=== PATIENT | male | born 1950 | race Caucasian/White ===

== ENCOUNTER 2016-09-24 19:39 | Observation (INO) | payer MEDICARE, OTHER ==
[2016-09-24] MEDS ORDERED: MORPHINE 4 MG/ML INJECTION IV ONE (20:17)
[2016-09-24] MEDS ORDERED: ONDANSETRON HCL 4 MG/2 ML VIAL IV ONE (20:17)
[2016-09-24] MEDS ORDERED: NS 1,000 ML IV ONE (20:17)
--- NOTE | 2016-09-24 20:43 | DIRPT ---
CLINICAL DATA: Shortness of breath, weakness and confusion today. Initial encounter. EXAM: CHEST 2 VIEW COMPARISON: CT chest and single view of the chest 08/20/2015. FINDINGS: There is mild cardiomegaly without edema. The lungs are clear. No pneumothorax or pleural effusion. IMPRESSION: No acute disease Electronically Signed By: Jacques Morrell M.D. On: 09/24/2016 20:40
[2016-09-24 21:05] LABS: AUTOMATED BASOPHIL 0.2 % (0-2)
[2016-09-24 21:07] LABS: AUTOMATED EOSINOPHIL 0.8 % (0-5); AUTOMATED LYMPH 5.5 % (17-44); AUTOMATED NEUTROPHIL 83.5 % (45-76); MPV 10.2 fL (7.4-10.4)
[2016-09-24 21:10] LABS: PARTIAL THROMB. TIME 37.7 SEC (22-35); PT-INR 1.5
[2016-09-24 21:11] LABS: BLOOD UREA NITROGEN 24 MG/DL (9-20); CALC CORRECTED 8.9 MG/DL (8.4-10.2); CALCIUM 8.6 MG/DL (8.4-10.2); CALCULATED OSMOLALITY 275 MOs/Kg (270-290); CHLORIDE 99 mEq/L (98-107); GLUCOSE 186 MG/DL (70-99); SODIUM LEVEL 138 mEq/L (137-146)
--- NOTE | 2016-09-24 21:36 | DIRPT ---
CLINICAL DATA: Right upper quadrant pain for 1 week. Subsequent encounter. EXAM: US ABDOMEN LIMITED - RIGHT UPPER QUADRANT COMPARISON: CT abdomen and pelvis 05/05/2015. Right upper quadrant ultrasound 01/20/2016. FINDINGS: Gallbladder: A few small stones measuring up to 0.7 cm are identified within the gallbladder. There is no pericholecystic fluid or wall thickening. Meteorology Teacher reports negative Olivera's sign. Common bile duct: Diameter: 0.6 cm. Liver: Demonstrates increased echogenicity consistent with fatty infiltration. No focal liver lesion. IMPRESSION: A few small gallstones are identified. There is no evidence of cholecystitis. No acute finding. Fatty infiltration of the liver. Electronically Signed By: Jacques Morrell M.D. On: 09/24/2016 21:33
[2016-09-24 22:00] LABS: LEUKOCYTES/URINE 2+ (NEGATIVE); NITRITE/URINE NEG (NEGATIVE); RBC/URINE TNTC (0-2); URINE OCCULT BLOOD 3+ (NEG/TRACE); WBC/URINE TNTC (0-2)
[2016-09-24] MEDS ORDERED: NYSTATIN ORAL SUSP 5 ML PO ONE (22:12)
[2016-09-24] MEDS ORDERED: Levofloxacin 750 mg/150 ml D5W 750 MG/150 ML RTU IV ONE (22:15)
--- NOTE | 2016-09-24 22:25 | EDPRACDOC ---
<Bhavana Gonzalez - Last Filed: 09/24/16 22:28> - General Information Information Source: Patient - History of Present Illness Onset: today HPI: C/o weakness, blood in urine, confusion, fever up to 100.3 and RUQ pain x 3 days. Denies N/V/D, cp, sob, cough, sore throat. Hx of blood clots in legs and lungs. Surgical hx = none. Symptoms Started: Reports: Gradually Symptoms Description: Constant Weakness: Bilateral: Generalized Symptoms: Reports: Weak Symptom Severity: Reports: Unable to performs ADL's Associated signs and symptoms:: Reports: None <Tariq Mendoza - Last Filed: 09/25/16 00:49> - General Information Chief Complaint: Generalized Weakness Stated Complaint: MEDICAL EVAL Time Seen by Provider: 09/24/16 20:05 Home Medications: Home Medications Gabapentin [Neurontin] 600 mg PO 0800,199908/20/15 Magnesium Hydroxide/Al Hydrox [Mylanta Liquid] 30 ml PO Q6H PRN 08/20/15 Albuterol Sulfate MDI [Proventil HFA] 2 puff INH Q4-6H PRN 09/24/16 Albuterol/Ipratropium Neb [Duoneb] 3 ml NEB Q6H PRN 09/24/16 Alprazolam [Xanax] 0.25 mg PO Q8H PRN 09/24/16 Bethanechol Chloride 50 mg PO BID 09/24/16 CYANOCOBALAMIN (Vitamin B-12) [Vitamin B-12] 1,000 mcg IM QMONTH 09/24/16 Docusate Sodium [Colace] 100 mg PO Q12H PRN 09/24/16 Ergocalciferol (Vitamin D2) [Vitamin D] 50,000 units PO QMONTH 09/24/16 Ferrous Sulfate [Feosol] 325 mg PO BID 09/24/16 Gabapentin 400 mg PO 1200 09/24/16 Lisinopril 5 mg PO DAILY 09/24/16 Metoprolol Tartrate [Lopressor] 12.5 mg PO BID 09/24/16 Nitroglycerin [Nitrostat] 0.4 mg SL Q5MX3 PRN 09/24/16 [place]-3 Fatty Acids/Fish Oil [Fish Oil 1,000 mg Softgel] 1 cap PO TID 09/24/16 Omeprazole 20 mg PO DAILY 09/24/16 Ondansetron HCl [Zofran] 4 mg PO Q8H PRN 09/24/16 Oxycodone HCl [Roxicodone] 5 mg PO Q4H PRN 09/24/16 Rivaroxaban [Xarelto] 15 mg PO .BID SEE COMMENTS 09/24/16 Spironolactone [Aldactone] 12.5 mg PO DAILY PRN 09/24/16 Suvorexant [Belsomra] 10 mg PO QHS 09/24/16 Tamsulosin HCl [Flomax] 0.4 mg PO BID 09/24/16 Tramadol HCl 25 mg PO Q12H PRN 09/24/16 Allergies/Adverse Reactions: Allergies Allergy/AdvReac Type Severity Reaction Status Date / Time aspirin Allergy Hives* Verified 02/01/16 10:36 ED Past Medical History - History Reviewed Yes Nurses notes reviewed and agree except as marked - Patient Medical History Cardiac History: Reports: Hypertension Respiratory History: Reports: COPD, Pneumonia, Pulmonary Embolism GI/ History: Reports: Urinary Tract Infection, Ulcer (long time ago) Musculoskeletal History: Reports: Arthritis Psychological History: Reports: Anxiety. Denies: Depression Systemic History: Reports: Anemia, Diabetes - Family Medical History Reports: Hypertension (multi-family), Cancer (mother (colon)). Denies: Diabetes , Stroke, Cardiac Disorders - Social Medical History Smoking Status: Never smoker <Tariq Mendoza - Last Filed: 09/25/16 00:49> EDM Review of Systems - Review of Systems ROS Negative Except as Marked: Yes All systems reviewed and were negative except as marked Gastrointestinal: Pain Genitourinary: Hematuria Neurological: Weakness, Changes in Orientation <Tariq Mendoza - Last Filed: 09/25/16 00:49> - Physical Exam Last recorded Vital Signs: Last Vital Signs Temp 99.3 F 09/24/16 20:01 Pulse 102 09/24/16 20:01 Resp 16 09/24/16 20:01 BP 150/67 09/24/16 20:01 Pulse Ox 97 09/24/16 20:01 Oxygen Pulse Oxygen Saturation 97 O2 Device Oxygen Flow Rate Fraction of Inspired Oxygen ( FIO2) <Bhavana Gonzalez - Last Filed: 09/24/16 22:28> - Physical Exam Constitutional: No apparent distress, Alert Oriented to: Time, Person, Place Last recorded Vital Signs: Last Vital Signs Temp 99.3 F 09/24/16 20:01 Pulse 102 09/24/16 20:01 Resp 16 09/24/16 20:01 BP 150/67 09/24/16 20:01 Pulse Ox 97 09/24/16 20:01 Oxygen Pulse Oxygen Saturation 97 O2 Device Oxygen Flow Rate Fraction of Inspired Oxygen ( FIO2) - HEENT Head: Normal Eye Exam: negative: Conjunctival Injection, Scleral Icterus Oropharynx: negative: Drooling TMJ: Normal Nose: No Symptoms Reported Neck: Normal - Respiratory/Cardiovascular Respiratory: Normal - CTA Cardiovascular: Normal - GI Auscultation: Normal Palpation: Normal Tenderness: Non tender, RUQ Olivera's Sign: Positive - Musculoskeletal Back: Normal Extremities: Normal - Integumentary Skin: Normal - Neurologic Memory Impaired: Normal Motor Function: Normal Cranial Nerve: Normal Mood Description: Normal Thought: Coherent Perception: Normal Neurologic Comment: neuro exam nml <Tariq Mendoza - Last Filed: 09/25/16 00:49> - Neurologic Orientation: Time, Person, Place Speech: Fluent Coginitive: Normal Affect: Normal Thought: Coherent Perception: Normal <Tariq Mendoza - Last Filed: 09/25/16 00:49> - Results 09/24/16 20:15 09/24/16 20:15 WBC 5.9 xk/uL (3.8-10.8) 09/24/16 20:15 RBC 3.82 xM/uL (4.70-6.10) L 09/24/16 20:15 Hgb 11.6 g/dL (14.0-18.0) L 09/24/16 20:15 Hct 33.7 % (42-52) L 09/24/16 20:15 MCV 88 fL (80-94) 09/24/16 20:15 MCH 30.3 pg (27-32) 09/24/16 20:15 MCHC 34.3 g/dl (33-36) 09/24/16 20:15 RDW 14.6 % (11.5-14.5) H 09/24/16 20:15 Plt Count 51 xk/uL (130-400) L 09/24/16 20:15 MPV 10.2 fL (7.4-10.4) 09/24/16 20:15 Neut % (Auto) 83.5 % (45-76) H 09/24/16 20:15 Lymph % (Auto) 5.5 % (17-44) L 09/24/16 20:15 [place] % (Auto) 10.0 % (3-10) 09/24/16 20:15 Eos % (Auto) 0.8 % (0-5) 09/24/16 20:15 Baso % (Auto) 0.2 % (0-2) 09/24/16 20:15 Absolute Neuts (auto) 4.90 xk/uL (1.7-8.2) 09/24/16 20:15 Absolute Lymphs (auto) 0.30 xk/uL (0.65-4.75) L 09/24/16 20:15 PT 15.9 SEC (9.2-11.2) H 09/24/16 20:15 INR 1.5 09/24/16 20:15 APTT 37.7 SEC (22-35) H 09/24/16 20:15 Sodium 138 mEq/L (137-146) 09/24/16 20:15 Potassium 4.2 mEq/L (3.5-5.1) 09/24/16 20:15 Chloride 99 mEq/L (98-107) 09/24/16 20:15 Carbon Dioxide 26 mMOL/L (22-33) 09/24/16 20:15 Anion Gap 17 mEq/L (8-16) H 09/24/16 20:15 BUN 24 MG/DL (9-20) H 09/24/16 20:15 Creatinine 1.80 MG/DL (0.66-1.25) H 09/24/16 20:15 Estimated GFR (MDRD) 38 mL/min (>=60) L 09/24/16 20:15 Glucose 186 MG/DL (70-99) H 09/24/16 20:15 Calculated Osmolality 275 MOs/Kg (270-290) 09/24/16 20:15 Calcium 8.6 MG/DL (8.4-10.2) 09/24/16 20:15 Corrected Calcium 8.9 MG/DL (8.4-10.2) 09/24/16 20:15 Total Bilirubin 1.3 MG/DL (0.2-1.3) 09/24/16 20:15 AST 27 IU/L (17-59) 09/24/16 20:15 ALT 27 IU/L (21-72) 09/24/16 20:15 Alkaline Phosphatase 98 IU/L (50-160) 09/24/16 20:15 Troponin I 0.02 ng/mL (<.04) 09/24/16 20:15 Lsz-O-Hnlfzhrjypb Pept 823 pg/mL (0-900) 09/24/16 20:15 Total Protein 8.0 G/DL (6.3-8.2) 09/24/16 20:15 Albumin 3.7 G/DL (3.5-5.0) 09/24/16 20:15 Urine Color Dark yellow 09/24/16 21:40 Urine Clarity Sl hzy 09/24/16 21:40 Urine pH 5.0 (5.0-8.0) 09/24/16 21:40 Ur Specific [place] 1.015 (1.003-1.035) 09/24/16 21:40 Urine Protein 2+ (NEG/TRACE) H 09/24/16 21:40 Urine Glucose (UA) Neg (NEGATIVE) 09/24/16 21:40 Urine Ketones Neg (NEGATIVE) 09/24/16 21:40 Urine Occult Blood 3+ (NEG/TRACE) H 09/24/16 21:40 Urine Nitrite Neg (NEGATIVE) 09/24/16 21:40 Urine Bilirubin Neg (NEGATIVE) 09/24/16 21:40 Urine Urobilinogen 4 MG/DL (0-1) H 09/24/16 21:40 Ur Leukocyte Esterase 2+ (NEGATIVE) H 09/24/16 21:40 Urine RBC Tntc (0-2) H 09/24/16 21:40 Urine WBC Tntc (0-2) H 09/24/16 21:40 Urine WBC Clumps Present (NONE) H 09/24/16 21:40 Ur Epithelial Cells 1+ 09/24/16 21:40 Urine Bacteria 1+ (NEG/FEW) H 09/24/16 21:40 Hyaline Casts 2-5 (0-2) H 09/24/16 21:40 Urine Mucus Occ (NEG/OCC) 09/24/16 21:40 Lab Results 09/24/16 09/24/16 09/24/16 21:40 20:15 20:15 WBC 5.9 RBC 3.82 L Hgb 11.6 L Hct 33.7 L MCV 88 MCH 30.3 MCHC 34.3 RDW 14.6 H Plt Count 51 L MPV 10.2 Neut % (Auto) 83.5 H Lymph % (Auto) 5.5 L [place] % (Auto) 10.0 Eos % (Auto) 0.8 Baso % (Auto) 0.2 Absolute Neuts (auto) 4.90 Absolute Lymphs (auto) 0.30 L PT 15.9 H INR 1.5 APTT 37.7 H Sodium Potassium Chloride Carbon Dioxide Anion Gap BUN Creatinine Estimated GFR (MDRD) Glucose Calculated Osmolality Calcium Corrected Calcium Total Bilirubin AST ALT Alkaline Phosphatase Troponin I Dmt-U-Mbuwlagxjws Pept Total Protein Albumin Urine Color Dark yellow Urine Clarity Sl hzy Urine pH 5.0 Ur Specific [place] 1.015 Urine Protein 2+ H Urine Glucose (UA) Neg Urine Ketones Neg Urine Occult Blood 3+ H Urine Nitrite Neg Urine Bilirubin Neg Urine Urobilinogen 4 H Ur Leukocyte Esterase 2+ H Urine RBC Tntc H Urine WBC Tntc H Urine WBC Clumps Present H Ur Epithelial Cells 1+ Urine Bacteria 1+ H Hyaline Casts 2-5 H Urine Mucus Occ 09/24/16 20:15 WBC RBC Hgb Hct MCV MCH MCHC RDW Plt Count MPV Neut % (Auto) Lymph % (Auto) [place] % (Auto) Eos % (Auto) Baso % (Auto) Absolute Neuts (auto) Absolute Lymphs (auto) PT INR APTT Sodium 138 Potassium 4.2 Chloride 99 Carbon Dioxide 26 Anion Gap 17 H BUN 24 H Creatinine 1.80 H Estimated GFR (MDRD) 38 L Glucose 186 H Calculated Osmolality 275 Calcium 8.6 Corrected Calcium 8.9 Total Bilirubin 1.3 AST 27 ALT 27 Alkaline Phosphatase 98 Troponin I 0.02 Hvm-D-Xxdupyiuspz Pept 823 Total Protein 8.0 Albumin 3.7 Urine Color Urine Clarity Urine pH Ur Specific [place] Urine Protein Urine Glucose (UA) Urine Ketones Urine Occult Blood Urine Nitrite Urine Bilirubin Urine Urobilinogen Ur Leukocyte Esterase Urine RBC Urine WBC Urine WBC Clumps Ur Epithelial Cells Urine Bacteria Hyaline Casts Urine Mucus <Bhavana Gonzalez - Last Filed: 09/24/16 22:28> - Results 09/24/16 20:15 09/24/16 20:15 WBC 5.9 xk/uL (3.8-10.8) 09/24/16 20:15 RBC 3.82 xM/uL (4.70-6.10) L 09/24/16 20:15 Hgb 11.6 g/dL (14.0-18.0) L 09/24/16 20:15 Hct 33.7 % (42-52) L 09/24/16 20:15 MCV 88 fL (80-94) 09/24/16 20:15 MCH 30.3 pg (27-32) 09/24/16 20:15 MCHC 34.3 g/dl (33-36) 09/24/16 20:15 RDW 14.6 % (11.5-14.5) H 09/24/16 20:15 Plt Count 51 xk/uL (130-400) L 09/24/16 20:15 MPV 10.2 fL (7.4-10.4) 09/24/16 20:15 Neut % (Auto) 83.5 % (45-76) H 09/24/16 20:15 Lymph % (Auto) 5.5 % (17-44) L 09/24/16 20:15 [place] % (Auto) 10.0 % (3-10) 09/24/16 20:15 Eos % (Auto) 0.8 % (0-5) 09/24/16 20:15 Baso % (Auto) 0.2 % (0-2) 09/24/16 20:15 Absolute Neuts (auto) 4.90 xk/uL (1.7-8.2) 09/24/16 20:15 Absolute Lymphs (auto) 0.30 xk/uL (0.65-4.75) L 09/24/16 20:15 PT 15.9 SEC (9.2-11.2) H 09/24/16 20:15 INR 1.5 09/24/16 20:15 APTT 37.7 SEC (22-35) H 09/24/16 20:15 Sodium 138 mEq/L (137-146) 09/24/16 20:15 Potassium 4.2 mEq/L (3.5-5.1) 09/24/16 20:15 Chloride 99 mEq/L (98-107) 09/24/16 20:15 Carbon Dioxide 26 mMOL/L (22-33) 09/24/16 20:15 Anion Gap 17 mEq/L (8-16) H 09/24/16 20:15 BUN 24 MG/DL (9-20) H 09/24/16 20:15 Creatinine 1.80 MG/DL (0.66-1.25) H 09/24/16 20:15 Estimated GFR (MDRD) 38 mL/min (>=60) L 09/24/16 20:15 Glucose 186 MG/DL (70-99) H 09/24/16 20:15 Calculated Osmolality 275 MOs/Kg (270-290) 09/24/16 20:15 Calcium 8.6 MG/DL (8.4-10.2) 09/24/16 20:15 Corrected Calcium 8.9 MG/DL (8.4-10.2) 09/24/16 20:15 Total Bilirubin 1.3 MG/DL (0.2-1.3) 09/24/16 20:15 AST 27 IU/L (17-59) 09/24/16 20:15 ALT 27 IU/L (21-72) 09/24/16 20:15 Alkaline Phosphatase 98 IU/L (50-160) 09/24/16 20:15 Troponin I 0.02 ng/mL (<.04) 09/24/16 20:15 Lxu-V-Mrpdyfbwctp Pept 823 pg/mL (0-900) 09/24/16 20:15 Total Protein 8.0 G/DL (6.3-8.2) 09/24/16 20:15 Albumin 3.7 G/DL (3.5-5.0) 09/24/16 20:15 Urine Color Dark yellow 09/24/16 21:40 Urine Clarity Sl hzy 09/24/16 21:40 Urine pH 5.0 (5.0-8.0) 09/24/16 21:40 Ur Specific [place] 1.015 (1.003-1.035) 09/24/16 21:40 Urine Protein 2+ (NEG/TRACE) H 09/24/16 21:40 Urine Glucose (UA) Neg (NEGATIVE) 09/24/16 21:40 Urine Ketones Neg (NEGATIVE) 09/24/16 21:40 Urine Occult Blood 3+ (NEG/TRACE) H 09/24/16 21:40 Urine Nitrite Neg (NEGATIVE) 09/24/16 21:40 Urine Bilirubin Neg (NEGATIVE) 09/24/16 21:40 Urine Urobilinogen 4 MG/DL (0-1) H 09/24/16 21:40 Ur Leukocyte Esterase 2+ (NEGATIVE) H 09/24/16 21:40 Urine RBC Tntc (0-2) H 09/24/16 21:40 Urine WBC Tntc (0-2) H 09/24/16 21:40 Urine WBC Clumps Present (NONE) H 09/24/16 21:40 Ur Epithelial Cells 1+ 09/24/16 21:40 Urine Bacteria 1+ (NEG/FEW) H 09/24/16 21:40 Hyaline Casts 2-5 (0-2) H 09/24/16 21:40 Urine Mucus Occ (NEG/OCC) 09/24/16 21:40 Lab Results 09/24/16 09/24/16 09/24/16 21:40 20:15 20:15 WBC 5.9 RBC 3.82 L Hgb 11.6 L Hct 33.7 L MCV 88 MCH 30.3 MCHC 34.3 RDW 14.6 H Plt Count 51 L MPV 10.2 Neut % (Auto) 83.5 H Lymph % (Auto) 5.5 L [place] % (Auto) 10.0 Eos % (Auto) 0.8 Baso % (Auto) 0.2 Absolute Neuts (auto) 4.90 Absolute Lymphs (auto) 0.30 L PT 15.9 H INR 1.5 APTT 37.7 H Sodium Potassium Chloride Carbon Dioxide Anion Gap BUN Creatinine Estimated GFR (MDRD) Glucose Calculated Osmolality Calcium Corrected Calcium Total Bilirubin AST ALT Alkaline Phosphatase Troponin I Qks-K-Nwzejesvuml Pept Total Protein Albumin Urine Color Dark yellow Urine Clarity Sl hzy Urine pH 5.0 Ur Specific [place] 1.015 Urine Protein 2+ H Urine Glucose (UA) Neg Urine Ketones Neg Urine Occult Blood 3+ H Urine Nitrite Neg Urine Bilirubin Neg Urine Urobilinogen 4 H Ur Leukocyte Esterase 2+ H Urine RBC Tntc H Urine WBC Tntc H Urine WBC Clumps Present H Ur Epithelial Cells 1+ Urine Bacteria 1+ H Hyaline Casts 2-5 H Urine Mucus Occ 09/24/16 20:15 WBC RBC Hgb Hct MCV MCH MCHC RDW Plt Count MPV Neut % (Auto) Lymph % (Auto) [place] % (Auto) Eos % (Auto) Baso % (Auto) Absolute Neuts (auto) Absolute Lymphs (auto) PT INR APTT Sodium 138 Potassium 4.2 Chloride 99 Carbon Dioxide 26 Anion Gap 17 H BUN 24 H Creatinine 1.80 H Estimated GFR (MDRD) 38 L Glucose 186 H Calculated Osmolality 275 Calcium 8.6 Corrected Calcium 8.9 Total Bilirubin 1.3 AST 27 ALT 27 Alkaline Phosphatase 98 Troponin I 0.02 Csf-P-Urkbvrppvzw Pept 823 Total Protein 8.0 Albumin 3.7 Urine Color Urine Clarity Urine pH Ur Specific [place] Urine Protein Urine Glucose (UA) Urine Ketones Urine Occult Blood Urine Nitrite Urine Bilirubin Urine Urobilinogen Ur Leukocyte Esterase Urine RBC Urine WBC Urine WBC Clumps Ur Epithelial Cells Urine Bacteria Hyaline Casts Urine Mucus - EKG EKG #1 EKG Time: 20:00 -: Yes EKG interpreted by me Rate: bpm: 100 Rhythm: ST ST: Normal Comparison: 08/20/15 (SVT) - Diagnostic Imaging Other Image interpreted by: Radiologist EXAM: US ABDOMEN LIMITED - RIGHT UPPER QUADRANT COMPARISON: CT abdomen and pelvis 05/05/2015. Right upper quadrant ultrasound 01/20/2016. FINDINGS: Gallbladder: A few small stones measuring up to 0.7 cm are identified within the gallbladder. There is no pericholecystic fluid or wall thickening. Bench Assembler Operator reports negative Olivera's sign. Common bile duct: Diameter: 0.6 cm. Liver: Demonstrates increased echogenicity consistent with fatty infiltration. No focal liver lesion. IMPRESSION: A few small gallstones are identified. There is no evidence of cholecystitis. No acute finding. Fatty infiltration of the liver. Electronically Signed By: Jacques Morrell M.D. On: 09/24/2016 21:33 Chest Image interpreted by: Radiologist EXAM: CHEST 2 VIEW COMPARISON: CT chest and single view of the chest 08/20/2015. FINDINGS: There is mild cardiomegaly without edema. The lungs are clear. No pneumothorax or pleural effusion. IMPRESSION: No acute disease Electronically Signed By: Jacques Morrell M.D. On: 09/24/2016 20:40 <Tariq Mendoza - Last Filed: 09/25/16 00:49> - Departure Yes I personally saw and evaluated the patient. Disposition: Admit IP To This Hospital Education/Counseling Given To: Patient, Family Member Education/Counseling Given Regarding: Diagnosis, Treatment Decision to Admit Time: 22:30 Decision to admit date: 09/24/16 Decision to admit: from ED - Physician Consulted Hospitalist Provider Called: Tha Cisneros <Bhavana Gonzalez - Last Filed: 09/24/16 22:28> <Tariq Mendoza - Last Filed: 09/25/16 00:49> - Departure Condition: Serious Final Diagnosis: UTI (urinary tract infection), Acute delirium, Acute on chronic renal failure, Anemia Instructions: Urinary Tract Infection in Men (ED), Renal Failure Diet (GEN), Dysuria, Weakness (General) Referrals: Fern Ferrara MD [Primary Care Provider] - One Week
[2016-09-24] MEDS ORDERED: Non-Formulary Medication ITEM (Magnesium Hydroxide/Al Hydrox [Mylanta Liquid] 30 ML) PO PRN (22:39)
[2016-09-24] MEDS ORDERED: OXYCODONE HCL 5 MG TABLET PO PRN (22:39)
[2016-09-24] MEDS ORDERED: Docusate Sodium 100 MG CAP PO PRN (22:39)
--- NOTE | 2016-09-24 22:39 | HISTPHYS ---
- Chief Complaint Lethargy and altered mental status - History of Present Illness This is a pleasant 58-year-old male who is a resident of [facility] who tells me that he has been feeling very weak and lethargic, with darker urine output over the last 2-3 days. His daughter brought him to the emergency department due to confusion, and here he was diagnosed with a urinary tract infection. He also was recently diagnosed with a DVT in his left lower extremity, having previously been treated for pulmonary embolism last year. He is currently on Xarelto. His daughter tells me that the nurse at [facility] is considering changing him to Coumadin since she feels his Xarelto was causing renal failure and other problems. In any case, the patient denies any chest pain, shortness of breath, nausea, vomiting, fevers , chills, but has had some intermittent right upper quadrant abdominal pain. Patient previously had an indwelling catheter, but this has been removed since last year. Currently urinates normally. - Medical History Cardiac History: Reports: Hypertension Respiratory History: Reports: COPD, Pneumonia, Pulmonary Embolism GI/ History: Reports: Urinary Tract Infection, Ulcer (long time ago) Musculoskeletal History: Reports: Arthritis Systemic History: Reports: Anemia, Diabetes Psychological History: Reports: Anxiety. Denies: Depression - Medictions/Allergies Allergies aspirin Allergy (Verified 02/01/16 10:36) Hives* pt denies r/t ulcer history Home Medications Gabapentin [Neurontin] 600 mg PO 00,199908/20/15 Magnesium Hydroxide/Al Hydrox [Mylanta Liquid] 30 ml PO Q6H PRN 08/20/15 Albuterol Sulfate MDI [Proventil HFA] 2 puff INH Q4-6H PRN 09/24/16 Albuterol/Ipratropium Neb [Duoneb] 3 ml NEB Q6H PRN 09/24/16 Alprazolam [Xanax] 0.25 mg PO Q8H PRN 09/24/16 Bethanechol Chloride 50 mg PO BID 09/24/16 CYANOCOBALAMIN (Vitamin B-12) [Vitamin B-12] 1,000 mcg IM QMONTH 09/24/16 Docusate Sodium [Colace] 100 mg PO Q12H PRN 09/24/16 Ergocalciferol (Vitamin D2) [Vitamin D] 50,000 units PO QMONTH 09/24/16 Ferrous Sulfate [Feosol] 325 mg PO BID 09/24/16 Gabapentin 400 mg PO 1200 09/24/16 Lisinopril 5 mg PO DAILY 09/24/16 Metoprolol Tartrate [Lopressor] 12.5 mg PO BID 09/24/16 Nitroglycerin [Nitrostat] 0.4 mg SL Q5MX3 PRN 09/24/16 [place]-3 Fatty Acids/Fish Oil [Fish Oil 1,000 mg Softgel] 1 cap PO TID 09/24/16 Omeprazole 20 mg PO DAILY 09/24/16 Ondansetron HCl [Zofran] 4 mg PO Q8H PRN 09/24/16 Oxycodone HCl [Roxicodone] 5 mg PO Q4H PRN 09/24/16 Rivaroxaban [Xarelto] 15 mg PO .BID SEE COMMENTS 09/24/16 Spironolactone [Aldactone] 12.5 mg PO DAILY PRN 09/24/16 Suvorexant [Belsomra] 10 mg PO QHS 09/24/16 Tamsulosin HCl [Flomax] 0.4 mg PO BID 09/24/16 Tramadol HCl 25 mg PO Q12H PRN 09/24/16 - Family History Reports: Hypertension (multi-family), Cancer (mother (colon)). Denies: Diabetes , Stroke, Cardiac Disorders - Social History Smoking Status: Never smoker - Review of Systems Constitutional: No Symptoms Reported (No fever, chills, wt loss/gain, fatigue) Eyes: No Symptoms Reported (No blurry vision, visual changes) Respiratory: No Symptoms Reported (No cough,wheezing or shortness of breath) Cardiovascular: No Symptoms Reported (No Chest pain, palpitations) Gastrointestinal: No Symptoms Reported (No abdominal pain, nausea, vomiting, diarrhea or constipation) Genitourinary: No Symptoms Reported (No dysuria) Musculoskeletal:: No Symptoms Reported (No headache, dizzness, seizures or focal weakness) Integumentary: No Symptoms Reported (No rashes or lesions) Hematologic: No Symptoms Reported (No bleeding or easy bruising) Endocrine: No Symptoms Reported (No polyuria) - Physical Exam Vital Signs: Initial Vitals Temperature 99.3 F 09/24/16 20:01 Pulse Rate 102 09/24/16 20:01 Respiratory Rate 16 09/24/16 20:01 Blood Pressure 150/67 09/24/16 20:01 Pulse Oxygen Saturation 97 09/24/16 20:01 Constitutional: Alert (Awake, Fully oriented, well appearing. No apparent distress) Oriented to: Time, Person, Place - HEENT Head: Normal (normocephalic,atraumatic, trachea midline) Eye: Normal (EOMI, Sclera white) Oropharynx: Normal (moist) Nose: No Symptoms Reported (without discharge or bleeding) Respiratory: Normal - CTA (Clear to auscultation bilaterally, no wheezing,rales or rhonchi. No use of accessory muscles) Cardiovascular: Normal (RRR, no murmurs, rubs or gallops) - GI Palpation: Normal (soft, non distended and nontender) GI Addtional Findings: Abdomen is obese, nondistended. Very minimally tender to deep palpation in the right upper quadrant. No rebound tenderness. - Musculoskeletal Extremities: Normal (normal tone, no cyanosis or edema) - Integumentary Skin: Normal (no rashes or lesions) - Neurologic Cranial Nerve: Normal (CN II-XII intact) Mood Description: Normal (Fully oriented and appropiate affect) - Focused CV Perfusion Exam Vital Signs: Last Vital Signs Temp 99.3 F 09/24/16 20:01 Pulse 102 09/24/16 20:01 Resp 16 09/24/16 20:01 BP 150/67 09/24/16 20:01 Pulse Ox 97 09/24/16 20:01 - Lab Results Laboratory Tests 09/24/16 09/24/16 09/24/16 15:40 15:40 20:15 WBC Hgb 10.6 L INR 1.5 Creatinine 1.80 H Urine WBC Urine WBC Clumps 09/24/16 09/24/16 09/24/16 20:15 20:15 21:40 WBC 5.9 Hgb 11.6 L INR 1.5 Creatinine Urine WBC Tntc H Urine WBC Clumps Present H - Diagnostic Findings Chest x-ray and gallbladder ultrasound without any acute findings. - Assessment (1) UTI (urinary tract infection) N39.0 - URINARY TRACT INFECTION, SITE NOT SPECIFIED Acute Qualifiers: Urinary tract infection type: U Hematuria presence: H Indwelling urinary catheter type: I Encounter type: E Reason for admission, with metabolic encephalopathy and dirty urinalysis. Treat empirically with IV Rocephin. Urine culture has been obtained, will follow up on this and tailor antibiotic therapy appropriately. Blood cultures have also been obtained. (2) Hematuria R31.9 - HEMATURIA, UNSPECIFIED Acute Will need to keep a close eye on his hematuria, especially since he is on anticoagulation. However, his hemoglobin every stable from previous values, so no need for intervention at this time, would follow on a daily basis. (3) DVT (deep venous thrombosis) I82.409 - ACUTE EMBOLISM AND THOMBOS UNSP DEEP VN UNSP LOWER EXTREMITY Acute Qualifiers: DVT location: D Affected thrombotic vein of extremity: A Laterality: L Chronicity: C Recently diagnosed. He was previously disease treated for pulmonary embolism. As such, he is now on lifelong anticoagulation. I advised his daughter that as far as I can see, there is no contraindication to continuing his Xarelto. (4) Metabolic encephalopathy G93.41 - METABOLIC ENCEPHALOPATHY Acute Due to urinary tract infection. (5) Acute on chronic renal failure N17.9 - ACUTE KIDNEY FAILURE, UNSPECIFIED; N18.9 - CHRONIC KIDNEY DISEASE, UNSPECIFIED Acute Hydrate gently, acute renal function checked in the morning. Likely due to urinary tract infection. If not improving, would consider ultrasound of the kidneys in the morning. (6) Anemia D64.9 - ANEMIA, UNSPECIFIED Acute Qualifiers: Anemia type: A Iron deficiency anemia type: I Vitamin B12 deficiency anemia type: V Folate deficiency anemia type: F Bone marrow failure anemia type: B Hemolytic anemia type: H Other causes of anemia: O Likely due to chronic disease, as well as iron deficiency. Continue iron supplementation orally. Follow daily. Stable.
[2016-09-24] MEDS ORDERED: Albuterol/Ipratropium Neb 3 ML NEB NEB PRN (22:41)
[2016-09-24] MEDS ORDERED: ACETAMINOPHEN 325 MG/TAB TABLET PO PRN (22:41)
[2016-09-24] MEDS ORDERED: ONDANSETRON HCL 4 MG/2 ML VIAL IV PRN (22:41)
[2016-09-24] MEDS ORDERED: Non-Formulary Medication ITEM (Rivaroxaban [Xarelto] 15 MG) PO SCH (22:45)
[2016-09-24] MEDS ORDERED: Aluminum;Magnesium;Simethicone 30 ML UDC PO PRN (22:48)
[2016-09-25] MEDS: CEFTRIAXONE 1 GM in D5W 100 ML IV SCH ×2 (01:07→23:51)
[2016-09-25] MEDS: NS 1,000 ML IV SCH ×4 (01:09→23:50)
[2016-09-25] MEDS ORDERED: Vaccine Screening Complete SCH (03:00)
[2016-09-25 03:48] LABS: BLOOD UREA NITROGEN 22 MG/DL (9-20); CALCIUM 7.5 MG/DL (8.4-10.2); CALCULATED OSMOLALITY 266 MOs/Kg (270-290); CHLORIDE 103 mEq/L (98-107); GLUCOSE 122 MG/DL (70-99); SODIUM LEVEL 136 mEq/L (137-146)
[2016-09-25 03:49] LABS: MPV 9.6 fL (7.4-10.4)
[2016-09-25] MEDS: PANTOPRAZOLE 40 MG TAB PO SCH (05:31)
[2016-09-25 07:22] VITALS: BMI 34.4
[2016-09-25] MEDS: ALPRAZOLAM 0.25 MG TAB PO PRN (08:03)
[2016-09-25] MEDS: TAMSULOSIN HCL 0.4 MG CAP PO SCH ×2 (08:11→21:16)
[2016-09-25] MEDS: GABAPENTIN 300 MG CAP PO SCH ×2 (08:11→21:15)
[2016-09-25] MEDS: METOPROLOL TARTRATE 25 MG TAB PO SCH ×2 (08:12→21:16)
[2016-09-25] MEDS: RIVAROXABAN 10 MG TAB PO SCH ×2 (08:13→21:24)
[2016-09-25] MEDS: BETHANECHOL 25 MG TAB PO SCH ×2 (08:14→21:16)
[2016-09-25] MEDS ORDERED: Non-Formulary Medication ITEM (Ferrous Sulfate [Feosol] 325 MG) PO SCH (09:00)
[2016-09-25] MEDS ORDERED: BETHANECHOL CHLORIDE 50 MG PO SCH (09:00)
[2016-09-25] MEDS ORDERED: Non-Formulary Medication ITEM (Omeprazole [Omeprazole] 20 MG) PO SCH (09:00)
[2016-09-25] MEDS: GABAPENTIN 400 MG CAP PO SCH (11:25)
[2016-09-25] MEDS: FERROUS SULFATE 324 MG TAB PO SCH ×2 (11:25→18:20)
--- NOTE | 2016-09-25 15:35 | GENMEDPROG ---
Subjective Note: Patient in bed responsive follows commands. Feeling weak tired and fatigued but denies and difficulties breathing cough phlegm production. Notes Reviewed: Yes Events from last night noted and discussed with Clinical Staff Current Medication List: Reviewed Currently: Reports: Cough, TRISTAN, Sputum DVT Prophylaxis: Yes - Physical Examination Vital Signs and I&O: Last Vital Signs Temp 99.0 F 09/25/16 13:57 Pulse 82 09/25/16 13:57 Resp 18 09/25/16 13:57 BP 129/69 09/25/16 13:57 Pulse Ox 98 09/25/16 13:57 Oxygen Pulse Oxygen Saturation 98 O2 Device Nasal Cannula Oxygen Flow Rate 2 Fraction of Inspired Oxygen ( FIO2) Intake & Output 09/22/16 09/23/16 09/24/16 09/25/16 23:59 23:59 23:59 23:59 Intake Total 1653 Output Total 650 Balance 1003 Patient's weight 105.687 kg General: Alert, Oriented x3, Cooperative, No acute distress HEENT: Normal, PERRLA, EOMI, Anicteric Sclera Neck: Non-tender, Limited range of motion Lymphatics: Normal Respiratory: Normal - CTA, Diminished, Rhonchi Cardiovascular: Regular rate, Normal S1, Normal S2, Murmurs GI: Normal bowel sounds, Soft, Non tender, No hepatospenomegaly, No masses Extremities/Musculoskeletal: Edema Skin: Warm,Dry and Intact, No rashes, No breakdown, No significant lesion Neurological: Normal speech, Cranial nerves 3-12 NL Psych/Mental Status: Anxious Lab/DI/Studies Reviewed: Vital Signs - 24 hr 09/25/16 09/25/16 09/25/16 20:00 21:33 23:50 Temperature 98.9 F Pulse Rate 90 77 82 Respiratory 18 Rate Blood Pressure 148/71 Pulse Oxygen 96 99 95 Saturation 09/26/16 09/26/16 09/26/16 02:00 05:50 08:00 Temperature 99.6 F 99.3 F Pulse Rate 86 87 Respiratory 18 18 Rate Blood Pressure 152/76 146/76 Pulse Oxygen 96 94 95 Saturation 09/26/16 09/26/16 10:00 13:29 Temperature 99.5 F 98.9 F Pulse Rate 78 78 Respiratory 18 18 Rate Blood Pressure 122/69 134/63 Pulse Oxygen 94 95 Saturation Allergies aspirin Allergy (Verified 02/01/16 10:36) Hives* pt denies r/t ulcer history 09/26/16 06:20 09/26/16 06:20 - Assessment (1) UTI (urinary tract infection) Acute N39.0 - URINARY TRACT INFECTION, SITE NOT SPECIFIED Qualifiers: Urinary tract infection type: acute cystitis Hematuria presence: with hematuria Indwelling urinary catheter type: I Encounter type: E Qualified Code(s): N30.01 - Acute cystitis with hematuria Comment/Plan: Continue IV antibiotic await urine cultures. (2) Acute on chronic renal failure Acute N17.9 - ACUTE KIDNEY FAILURE, UNSPECIFIED; N18.9 - CHRONIC KIDNEY DISEASE, UNSPECIFIED Comment/Plan: Monitor renal function maintain hydration avoid any nephrotoxins (3) Acute delirium Acute R41.0 - DISORIENTATION, UNSPECIFIED Comment/Plan: Mentation slowly improving continue supportive care avoid sedation and narcotic analgesics (4) Anemia Acute D64.9 - ANEMIA, UNSPECIFIED Qualifiers: Anemia type: unspecified type Iron deficiency anemia type: I Vitamin B12 deficiency anemia type: V Folate deficiency anemia type: F Bone marrow failure anemia type: B Hemolytic anemia type: H Other causes of anemia: O Qualified Code(s): D64.9 - Anemia, unspecified Comment/Plan: Monitor counts. (5) Neuropathy Acute G62.9 - POLYNEUROPATHY, UNSPECIFIED Comment/Plan: Stable on home meds (6) DVT (deep venous thrombosis) Acute I82.409 - ACUTE EMBOLISM AND THOMBOS UNSP DEEP VN UNSP LOWER EXTREMITY Qualifiers: DVT location: D Affected thrombotic vein of extremity: A Laterality: L Chronicity: C Comment/Plan: Continue Xarelto, will obtain venous duplex Case Care Discussed with: Patient, Nursing Staff Education/Counseling Given To: Patient Education/Counseling Given Regarding: Diagnosis, Treatment, Prognosis, Follow Up Total Time: 45 min . Critical Care: No Code: 43075 (12+)
[2016-09-25 17:00] LABS: % SATURATION 9.1 % (20-50)
--- NOTE | 2016-09-25 19:46 | DIRPT ---
CLINICAL DATA: Bilateral lower extremity edema for 2 months EXAM: BILATERAL LOWER EXTREMITY VENOUS DOPPLER ULTRASOUND TECHNIQUE: [place]ak-scale sonography with graded compression, as well as color Doppler and duplex ultrasound were performed to evaluate the lower extremity deep venous systems from the level of the common femoral vein and including the common femoral, femoral, profunda femoral, popliteal and calf veins including the posterior tibial, peroneal and gastrocnemius veins when visible. The superficial great saphenous vein was also interrogated. Spectral Doppler was utilized to evaluate flow at rest and with distal augmentation maneuvers in the common femoral, femoral and popliteal veins. COMPARISON: None. FINDINGS: RIGHT LOWER EXTREMITY Common Femoral Vein: No evidence of thrombus. Normal compressibility, respiratory phasicity and response to augmentation. Saphenofemoral Junction: No evidence of thrombus. Normal compressibility and flow on color Doppler imaging. Profunda Femoral Vein: No evidence of thrombus. Normal compressibility and flow on color Doppler imaging. Femoral Vein: No evidence of thrombus. Normal compressibility, respiratory phasicity and response to augmentation. Popliteal Vein: No evidence of thrombus. Normal compressibility, respiratory phasicity and response to augmentation. Calf Veins: No evidence of thrombus. Normal compressibility and flow on color Doppler imaging. Superficial Great Saphenous Vein: No evidence of thrombus. Normal compressibility and flow on color Doppler imaging. Venous Reflux: None. Other Findings: None. LEFT LOWER EXTREMITY Common Femoral Vein: No evidence of thrombus. Normal compressibility, respiratory phasicity and response to augmentation. Saphenofemoral Junction: No evidence of thrombus. Normal compressibility and flow on color Doppler imaging. Profunda Femoral Vein: No evidence of thrombus. Normal compressibility and flow on color Doppler imaging. Femoral Vein: No evidence of thrombus. Normal compressibility, respiratory phasicity and response to augmentation. Popliteal Vein: No evidence of thrombus. Normal compressibility, respiratory phasicity and response to augmentation. Calf Veins: No evidence of thrombus. Normal compressibility and flow on color Doppler imaging. Superficial Great Saphenous Vein: No evidence of thrombus. Normal compressibility and flow on color Doppler imaging. Venous Reflux: None. Other Findings: Calf vein evaluation is limited on the left. IMPRESSION: No evidence of deep venous thrombosis. Electronically Signed By: Alvin Davidson M.D. On: 09/25/2016 19:44
[2016-09-25] MEDS ORDERED: SUVOREXANT 10 MG PO SCH (21:00)
[2016-09-25] MEDS ORDERED: TRAMADOL HCL 50 MG TAB PO PRN (22:00)
[2016-09-25] MEDS: TRAMADOL HCL 50 MG TAB PO PRN (22:24)
[2016-09-26] MEDS: PANTOPRAZOLE 40 MG TAB PO SCH (07:12)
[2016-09-26 07:27] LABS: PARTIAL THROMB. TIME 35.9 SEC (22-35); PT-INR 1.3
[2016-09-26 07:29] LABS: MPV 9.8 fL (7.4-10.4)
[2016-09-26 07:34] LABS: BLOOD UREA NITROGEN 16 MG/DL (9-20); CALCIUM 7.9 MG/DL (8.4-10.2); CALCULATED OSMOLALITY 269 MOs/Kg (270-290); CHLORIDE 106 mEq/L (98-107); GLUCOSE 133 MG/DL (70-99); SODIUM LEVEL 138 mEq/L (137-146)
[2016-09-26 08:25] LABS: SEG NEUTROPHIL 67 % (45-76)
[2016-09-26] MEDS: GABAPENTIN 300 MG CAP PO SCH ×2 (08:31→19:30)
[2016-09-26] MEDS: TAMSULOSIN HCL 0.4 MG CAP PO SCH ×2 (08:31→20:32)
[2016-09-26] MEDS: BETHANECHOL 25 MG TAB PO SCH ×2 (08:32→20:32)
[2016-09-26] MEDS: METOPROLOL TARTRATE 25 MG TAB PO SCH ×2 (08:32→20:32)
[2016-09-26] MEDS: RIVAROXABAN 10 MG TAB PO SCH ×2 (08:32→20:32)
[2016-09-26] MEDS: NS 1,000 ML IV SCH ×2 (10:20→17:56)
[2016-09-26] MEDS: FERROUS SULFATE 324 MG TAB PO SCH ×2 (11:33→17:56)
[2016-09-26] MEDS: GABAPENTIN 400 MG CAP PO SCH (11:33)
[2016-09-26] MEDS: TRAMADOL HCL 50 MG TAB PO PRN (12:22)
[2016-09-26] MEDS ORDERED: NS 1,000 ML IV SCH (18:02)
--- NOTE | 2016-09-26 18:14 | GENMEDPROG ---
Subjective Note: Patient in bed responsive follows commands. Denies and difficulties breathing cough or phlegm production. Notes Reviewed: Yes Events from last night noted and discussed with Clinical Staff Current Medication List: Reviewed Currently: Reports: Cough, TRISTAN, Sputum, Reflux Sx DVT Prophylaxis: Yes - Physical Examination Vital Signs and I&O: Last Vital Signs Temp 98.9 F 09/26/16 13:29 Pulse 78 09/26/16 13:29 Resp 18 09/26/16 13:29 BP 134/63 09/26/16 13:29 Pulse Ox 95 09/26/16 13:29 Oxygen Pulse Oxygen Saturation 95 O2 Device Room Air Oxygen Flow Rate 2 Fraction of Inspired Oxygen ( FIO2) Intake & Output 09/23/16 09/24/16 09/25/16 09/26/16 23:59 23:59 23:59 23:59 Intake Total 2937 1662 Output Total 650 1075 Balance 2287 587 Patient's weight 105.687 kg General: Alert, Oriented x3, Cooperative, No acute distress HEENT: Normal, PERRLA, EOMI, Anicteric Sclera Neck: Non-tender, Limited range of motion Lymphatics: Normal Respiratory: Normal - CTA, Diminished, Rhonchi Cardiovascular: Regular rate, Normal S1, Normal S2, Murmurs GI: Normal bowel sounds, Soft, Non tender, No hepatospenomegaly, No masses Extremities/Musculoskeletal: Edema Skin: Warm,Dry and Intact, No rashes, No breakdown, No significant lesion Neurological: Normal speech, Cranial nerves 3-12 NL Psych/Mental Status: Anxious Lab/DI/Studies Reviewed: Patient Name: TRISH MOSES LOC: [facility] : 1950 AGE: 66 Order Date:09/25/16 Date of Service: Report # [id number] Ord Physician: Gus Linares MD Exam # [id number] Emergency Physician: Bhavana Gonzalez MD Exam(s): [id number] US/US EXTREM LOW VENOUS-BILAT CLINICAL DATA: Bilateral lower extremity edema for 2 months EXAM: BILATERAL LOWER EXTREMITY VENOUS DOPPLER ULTRASOUND TECHNIQUE: [place]-scale sonography with graded compression, as well as color Doppler and duplex ultrasound were performed to evaluate the lower extremity deep venous systems from the level of the common femoral vein and including the common femoral, femoral, profunda femoral, popliteal and calf veins including the posterior tibial, peroneal and gastrocnemius veins when visible. The superficial great saphenous vein was also interrogated. Spectral Doppler was utilized to evaluate flow at rest and with distal augmentation maneuvers in the common femoral, femoral and popliteal veins. COMPARISON: None. FINDINGS: RIGHT LOWER EXTREMITY Common Femoral Vein: No evidence of thrombus. Normal compressibility, respiratory phasicity and response to augmentation. Saphenofemoral Junction: No evidence of thrombus. Normal compressibility and flow on color Doppler imaging. Profunda Femoral Vein: No evidence of thrombus. Normal compressibility and flow on color Doppler imaging. Femoral Vein: No evidence of thrombus. Normal compressibility, respiratory phasicity and response to augmentation. Popliteal Vein: No evidence of thrombus. Normal compressibility, respiratory phasicity and response to augmentation. Calf Veins: No evidence of thrombus. Normal compressibility and flow on color Doppler imaging. Superficial Great Saphenous Vein: No evidence of thrombus. Normal compressibility and flow on color Doppler imaging. Venous Reflux: None. Other Findings: None. LEFT LOWER EXTREMITY Common Femoral Vein: No evidence of thrombus. Normal compressibility, respiratory phasicity and response to augmentation. Saphenofemoral Junction: No evidence of thrombus. Normal compressibility and flow on color Doppler imaging. Profunda Femoral Vein: No evidence of thrombus. Normal compressibility and flow on color Doppler imaging. Femoral Vein: No evidence of thrombus. Normal compressibility, respiratory phasicity and response to augmentation. Popliteal Vein: No evidence of thrombus. Normal compressibility, respiratory phasicity and response to augmentation. Calf Veins: No evidence of thrombus. Normal compressibility and flow on color Doppler imaging. Superficial Great Saphenous Vein: No evidence of thrombus. Normal compressibility and flow on color Doppler imaging. Venous Reflux: None. Other Findings: Calf vein evaluation is limited on the left. IMPRESSION: No evidence of deep venous thrombosis. Electronically Signed By: Alvin Davidson M.D. On: 09/25/2016 19:44 Electronically Signed By: lAvin Davidson MD Electronically Signed Date/Time: [id number] Dictate Date/Time: 09/25/161940 Technologist: Yady Kirby Transcribed By: Josse Transcribed Date/Time: 01/24/17 1944 Microbiology 09/24/16 21:40 Urine - Clean Catch - Midstream Urine Culture - Final Yeast - Assessment (1) UTI (urinary tract infection) Acute N39.0 - URINARY TRACT INFECTION, SITE NOT SPECIFIED Qualifiers: Urinary tract infection type: acute cystitis Hematuria presence: with hematuria Indwelling urinary catheter type: I Encounter type: E Qualified Code(s): N30.01 - Acute cystitis with hematuria Comment/Plan: Continue IV antibiotic await urine cultures. Urine testing shows yeast will add Diflucan (2) Acute on chronic renal failure Acute N17.9 - ACUTE KIDNEY FAILURE, UNSPECIFIED; N18.9 - CHRONIC KIDNEY DISEASE, UNSPECIFIED Comment/Plan: Renal function back to normal. Continue gentle IV hydration (3) Acute delirium Resolved R41.0 - DISORIENTATION, UNSPECIFIED Comment/Plan: Mentation back to normal, patient fully alert awake oriented interactive (4) Anemia Acute D64.9 - ANEMIA, UNSPECIFIED Qualifiers: Anemia type: unspecified type Iron deficiency anemia type: I Vitamin B12 deficiency anemia type: V Folate deficiency anemia type: F Bone marrow failure anemia type: B Hemolytic anemia type: H Other causes of anemia: O Qualified Code(s): D64.9 - Anemia, unspecified Comment/Plan: Monitor counts. Overall stable (5) Neuropathy Acute G62.9 - POLYNEUROPATHY, UNSPECIFIED Comment/Plan: Stable on home meds (6) DVT (deep venous thrombosis) Acute I82.409 - ACUTE EMBOLISM AND THOMBOS UNSP DEEP VN UNSP LOWER EXTREMITY Qualifiers: DVT location: D Affected thrombotic vein of extremity: A Laterality: L Chronicity: C Comment/Plan: Continue Xarelto, Dopplers showed NO DVT Case Care Discussed with: Patient Education/Counseling Given To: Patient Education/Counseling Given Regarding: Diagnosis, Treatment, Prognosis, Follow Up Total Time: 45 min , Critical Care: No Code: 59957 (12+)
[2016-09-26] MEDS ORDERED: Fluconazole 200 mg in NS 200 MG/100 ML ML IV ONE (18:30)
[2016-09-26] MEDS ORDERED: Magnesium Sulfate 2 gm/D5W 2 GM/50 ML RTU IV ONE (20:00)
[2016-09-26 21:52] VITALS: PULSE 76; TEMP 98.2
[2016-09-27] MEDS: TRAMADOL HCL 50 MG TAB PO PRN (00:08)
[2016-09-27] MEDS: CEFTRIAXONE 1 GM in D5W 100 ML IV SCH (00:08)
[2016-09-27] MEDS: PANTOPRAZOLE 40 MG TAB PO SCH (05:17)
[2016-09-27 05:59] VITALS: BP 153/69
[2016-09-27 06:26] LABS: BLOOD UREA NITROGEN 14 MG/DL (9-20); CALCULATED OSMOLALITY 268 MOs/Kg (270-290); CHLORIDE 105 mEq/L (98-107); GLUCOSE 125 MG/DL (70-99); SODIUM LEVEL 138 mEq/L (137-146)
[2016-09-27 06:34] LABS: AUTOMATED BASOPHIL 0.5 % (0-2); AUTOMATED EOSINOPHIL 5.1 % (0-5); AUTOMATED LYMPH 24.1 % (17-44); AUTOMATED MONOCYTE 11.8 % (3-10); AUTOMATED NEUTROPHIL 58.5 % (45-76); MPV 9.9 fL (7.4-10.4)
[2016-09-27] MEDS ORDERED: Magnesium Sulfate 2 gm/D5W 2 GM/50 ML RTU IV ONE (08:00)
[2016-09-27] MEDS: TAMSULOSIN HCL 0.4 MG CAP PO SCH (08:06)
[2016-09-27] MEDS: METOPROLOL TARTRATE 25 MG TAB PO SCH (08:06)
[2016-09-27] MEDS: BETHANECHOL 25 MG TAB PO SCH (08:06)
[2016-09-27] MEDS: GABAPENTIN 300 MG CAP PO SCH (08:06)
[2016-09-27] MEDS: RIVAROXABAN 10 MG TAB PO SCH (08:06)
[2016-09-27] MEDS: FERROUS SULFATE 324 MG TAB PO SCH (11:03)
[2016-09-27] MEDS: GABAPENTIN 400 MG CAP PO SCH (11:03)
[2016-09-27] MEDS ORDERED: MAGNESIUM OXIDE 400 MG TAB PO SCH (12:00)
--- NOTE | 2016-09-27 12:33 | PCM.DCS92 ---
- Final/Secondary Discharge Diagnosis (1) UTI (urinary tract infection) Acute N39.0 - URINARY TRACT INFECTION, SITE NOT SPECIFIED Present on Admission: Yes acute cystitis with hematuria I E N30.01 - Acute cystitis with hematuria Comment: Continue po Diflucan (2) Acute on chronic renal failure Resolved N17.9 - ACUTE KIDNEY FAILURE, UNSPECIFIED; N18.9 - CHRONIC KIDNEY DISEASE, UNSPECIFIED Present on Admission: Yes Comment: Renal function back to normal. Continue gentle IV hydration (3) Acute delirium Resolved R41.0 - DISORIENTATION, UNSPECIFIED Present on Admission: Yes Comment: Mentation back to normal, patient fully alert awake oriented interactive (4) Anemia Chronic D64.9 - ANEMIA, UNSPECIFIED Present on Admission: Yes unspecified type I V F B H O D64.9 - Anemia, unspecified Comment: Monitor counts. Overall stable (5) Neuropathy Chronic G62.9 - POLYNEUROPATHY, UNSPECIFIED Present on Admission: Yes Comment: Stable on home meds (6) DVT (deep venous thrombosis) Chronic I82.409 - ACUTE EMBOLISM AND THOMBOS UNSP DEEP VN UNSP LOWER EXTREMITY Present on Admission: Yes lower extremity A left chronic Comment: Patient refused Xarelto. He was adviced that he needs to finish 6 months of anticougulation and is agreeble to take coumadin. Discharge Disposition: Shelter Facility Discharge Condition: Improved Cognitive Discharge Status: Unimpaired Fuctional Discharge Status: Walker Assistance, Wheelchair Assistance Physician Follow up/Referrals: Fern Ferrara MD [Primary Care Provider] - One Week Home Medications / New Prescriptions: New Fluconazole [Diflucan] 100 mg PO DAILY #5 tab L.acidoph/B.animalis/B.longum [Florajen3 Capsule] 460 mg PO DAILY #30 capsule Senna Concentrate [Senokot] 2 tab PO QHS #120 tablet Warfarin Sodium [Coumadin] 5 mg PO DAILY #30 tab Continue Magnesium Hydroxide/Al Hydrox [Mylanta Liquid] 30 ml PO Q6H PRN PRN Reason: INDIGESTION Gabapentin [Neurontin] 600 mg PO 0800,2000 Alprazolam [Xanax] 0.25 mg PO Q8H PRN PRN Reason: Anxiety Ergocalciferol (Vitamin D2) [Vitamin D] 50,000 units PO QMONTH Bethanechol Chloride 50 mg PO BID Tramadol HCl 25 mg PO Q12H PRN PRN Reason: Moderate To Severe Pain Spironolactone [Aldactone] 12.5 mg PO DAILY PRN PRN Reason: SBP>100 Albuterol Sulfate MDI [Proventil HFA] 2 puff INH Q4-6H PRN PRN Reason: Shortness Of Breath Tamsulosin HCl [Flomax] 0.4 mg PO BID Oxycodone HCl [Roxicodone] 5 mg PO Q4H PRN PRN Reason: Pain Omeprazole 20 mg PO DAILY Nitroglycerin [Nitrostat] 0.4 mg SL Q5MX3 PRN PRN Reason: Chest Pain Or Discomfort Gabapentin 400 mg PO 1200 Metoprolol Tartrate [Lopressor] 12.5 mg PO BID Lisinopril 5 mg PO DAILY [place]-3 Fatty Acids/Fish Oil [Fish Oil 1,000 mg Softgel] 1 cap PO TID Ferrous Sulfate [Feosol] 325 mg PO BID CYANOCOBALAMIN (Vitamin B-12) [Vitamin B-12] 1,000 mcg IM QMONTH Albuterol/Ipratropium Neb [Duoneb] 3 ml NEB Q6H PRN PRN Reason: Shortness Of Breath Suvorexant [Belsomra] 10 mg PO QHS Ondansetron HCl [Zofran] 4 mg PO Q8H PRN PRN Reason: Nausea/Vomiting Discontinued Rivaroxaban [Xarelto] 15 mg PO .BID SEE COMMENTS Docusate Sodium [Colace] 100 mg PO Q12H PRN PRN Reason: Constipation pt/inr on sun O2 Device: Room Air Diet at Discharge: Heart Healthy, Low Salt, High Fiber Activity: As Tolerated, No Heavy Lifting Call Office For: Worsening Symptoms, Fever over 101 F Discontinue use of:: Alcohol, All Illegal Substances, All Types of Tobacco - DC Summary Notes Hospital Course Note:: Discharge summary on patient named TRISH MOSES admitted to [facility] on 09/26/16 by Tha Cisneros MD. Date of discharge is []. Patient was initially brought to ED from alf facility for evaluation of diminished level responsiveness lethargy and bloody urine. Please refer the admission for further details. ED workup was undertaken and UA was positive. Given significant amount of blood in the urine and worsening anemia is alert a was withheld. Treatment of IV antibiotic was instituted and during hospital stay patient has received IV Rocephin. Patient was initially found to be in renal failure with creatinine being 1.8, this was felt to be related to mild dehydration gentle IV hydration was provided. His discharge creatinine was 0.9. Patient required magnesium supplementation. Further urine testing showed [place] and treatment of Diflucan was instituted. Patient remained thrombocytopenic during hospital stay however his platelet count has remained fairly stable around 50,000. Right upper quadrant ultrasonogram was obtained which showed few small gallstones but no evidence of cholecystitis ,no acute findings, fatty liver infiltration. Bilateral lower extremities venous Dopplers were obtained and were negative for DVT. Patient was mildly anemic however did not meet criteria for blood transfusion. His hemoglobin has oscillating between 9 and 10, his discharge hemoglobin was 9.8. Patient was very hesitant to resume Xarelto, he was advised that given recent diagnosis of DVT is recommended that he finished 6 months of anticoagulation. After presenting different options he has decided to use Coumadin. His mentation has returned to baseline and by the time of discharge patient was fully alert awake and oriented interactive. Remain on home regimen for his chronic medical conditions and during hospital stay he was hemodynamically stable. Current clinical condition, clinical findings during hospital stay and post discharge plan was discussed with patient providers at alf facility. It was felt that by general 26 patient has reached maximum benefit inpatient therapy and in clinically improved condition he has been transferred back to alf facility. Total Time: 45 min. Code: 77792 (<30 min.) - Physical Exam Vital Signs: Last Vital Signs Temp 98.2 F 09/27/16 05:57 Pulse 76 09/27/16 08:06 Resp 18 09/27/16 05:57 BP 153/69 09/27/16 08:06 Pulse Ox 95 09/27/16 08:00 Oxygen Pulse Oxygen Saturation 95 O2 Device Room Air Oxygen Flow Rate Fraction of Inspired Oxygen ( FIO2) Constitutional: No apparent distress, Alert Oriented to: Time, Person, Place - HEENT Head: Normal Eye: Normal. negative: Conjunctival Injection, Scleral Icterus Oropharynx: Normal. negative: Drooling ENT EAC: Normal TMJ: Normal Nose: No Symptoms Reported - Respiratory/Cardiovascular Respiratory: Normal - CTA, Diminished, Rhonchi Cardiovascular: Normal, Systolic murmur - GI Auscultation: Normal Palpation: Normal Tenderness: Non tender, RUQ Olivera's Sign: Positive Rectal Exam: Deferred - Exam Deferred: Yes - Musculoskeletal Back: Normal Extremities: Normal - Integumentary Skin: Normal, Warm, Dry Lymphatics: Normal - Neurologic Memory Impaired: Normal Motor Function: Normal Cranial Nerve: Normal Cerebellar: Ataxia Mood Description: Normal Thought: Coherent Perception: Normal - Other Exam Other Exam Findings: Allergies aspirin Allergy (Verified 02/01/16 10:36) Hives* pt denies r/t ulcer history Last Vital Signs Temp 98.2 F 09/27/16 05:57 Pulse 76 09/27/16 08:06 Resp 18 09/27/16 05:57 BP 153/69 09/27/16 08:06 Pulse Ox 95 09/27/16 08:00 09/27/16 05:05 09/27/16 05:05 Abnormal Lab Results 09/27/16 09/27/16 05:05 05:05 RBC 3.23 L Hgb 9.8 L Hct 28.3 L Plt Count 52 L [place] % (Auto) 11.8 H Eos % (Auto) 5.1 H Glucose 125 H Calculated Osmolality 268 L Calcium 8.0 L Magnesium 1.40 L Microbiology 09/24/16 21:40 Urine - Clean Catch - Midstream Urine Culture - Final Yeast Vital Signs - 24 hr 09/26/16 09/26/16 09/26/16 13:29 20:00 21:50 Temperature 98.9 F 98.2 F Pulse Rate 78 76 Respiratory 18 18 Rate Blood Pressure 134/63 152/71 Pulse Oxygen 95 95 95 Saturation 09/27/16 09/27/16 09/27/16 05:57 08:00 08:06 Temperature 98.2 F Pulse Rate 76 76 Respiratory 18 Rate Blood Pressure 153/69 153/69 Pulse Oxygen 95 95 Saturation
[2016-09-27] MEDS: ALPRAZOLAM 0.25 MG TAB PO PRN (15:03)
[2016-09-28] MEDS ORDERED: RIVAROXABAN 10 MG TAB PO SCH (08:00)
== END 2016-09-27 17:07 ==
LOC: ED 19:39 → EDINP 22:41 → INTOOBSV 22:41 → UNDOADMIN 22:41 → EDLOC 22:41 → MPS3 09-25 10:50 → INTOOBSV 09-26 08:00 → OBSVTOIN 09-26 08:00
PROVIDERS: ADMIT Internal Medicine; ATTEND Internal Medicine
DX: N30.01 Acute cystitis with hematuria (principal); I82.409 Acute embolism and thrombosis of unspecified deep veins of unspecified lower extremity; E11.22 Type 2 diabetes mellitus with diabetic chronic kidney disease; N18.9 Chronic kidney disease, unspecified; I12.9 Hypertensive chronic kidney disease with stage 1 through stage 4 chronic kidney disease, or unspecified chronic kidney disease; I82.502 Chronic embolism and thrombosis of unspecified deep veins of left lower extremity; G93.41 Metabolic encephalopathy; D64.9 Anemia, unspecified; N17.9 Acute kidney failure, unspecified; Z86.711 Personal history of pulmonary embolism; Z79.01 Long term (current) use of anticoagulants; J44.9 Chronic obstructive pulmonary disease, unspecified; Z79.899 Other long term (current) drug therapy; R41.0 Disorientation, unspecified; G62.9 Polyneuropathy, unspecified
CPT/HCPCS: 36415; 71020; 76705; 80048; 80053; 81001; 83540; 83550; 83605; 83735; 83880; 84484; 85007; 85025; 85027; 85610; 85730; 87040; 87077; 87086; 93005; 93970; 96361; 96365; 96366; 96375; 99284; A9270; G0237; G0378; J0696; J1450; J1956; J2270; J2405; J3475; J7060; J3490